=== PATIENT | male | born 1970 | race African-American/Black ===

== ENCOUNTER 2017-12-15 11:32 | Day surgery (SDC) | payer OTHER ==
[~2017-12-15 11:32] MED LIST: ADULT ROBITUSS118 ML PO; ALBU3IS INH; ALBU8HFA2 INH; ALBU90OI INH; ALBU90OI6 INH; ALBU90OI61 INH; ALBUIS INH; AMLO10 PO; ASMACORT; ASPI325 PO; AZIT250 PO; Arthritis Pain650 M1 PO; BUDE.25 NEB; BUDE.5 INH; BUDE.5 NEB; Bactrim Ds Tab1 EACH PO; Budesonide0.5 MG/2 M IH; CARV25 PO; CITA20 PO; CLON.1 PO; CLON.2TP TP; CLON.3 PO; DILT120 PO; DILT120ERA PO; DOCU100 PO; DULERA 200 MCG/13 GM INH; DULO30 PO; DULO60 PO; FAMO20 PO; FETZIMA40 MG PO; FLUSAL2505 IH; FLUSAL5005 IH; GABA600 PO; HYDACE5 PO; HYDCHL12.5 PO; HYDCHL25 PO; HYDRA25 PO; HYDRA50 PO; IPRAIS INH; LISHYD1012 PO; LISI20 PO; LISI5 PO; MELO7.5 PO; METPRE4DP PO; MONT10T PO; NAPR500 PO; Norco 10-325 T1 EACH PO; Norco 5-325 Ta1 EACH PO; OXYACE5T PO; OXYC10TA19 PO; OXYC1TAB11 PO; PRED10; PRED10 PO; PRED20 PO; Prednisone20 MG PO; QVAR7.3 G1 IH; SPIR25 PO; TERA5 PO; TIOT18 INH; TRAM50 PO
[2017-12-15 12:16] LABS: International Normalized Ratio 0.99; Prothrombin Time Results 10.3 Sec (9.7-11.5)
== END 2017-12-15 22:51 | disposition home or self-care (01) ==
LOC: RAD 11:32
PROVIDERS: Orthopaedic Surgery
PROC: 0SBB3ZX Excision of Left Hip Joint, Percutaneous Approach, Diagnostic (ICD-10-PCS; principal; 2017-12-15)
DX: T84.52XA Infection and inflammatory reaction due to internal left hip prosthesis, initial encounter (principal)
CPT/HCPCS: 20610; 36415; 77002; 85610; 85730

== ENCOUNTER 2020-11-25 04:29 | Emergency (ER) | payer OTHER ==
[~2020-11-25] VITALS: Ht 182.9 cm; Wt 113.4 kg
== END 2020-11-25 07:43 ==
LOC: ER 04:29
DX: I46.9 Cardiac arrest, cause unspecified (principal); I10 Essential (primary) hypertension; E11.9 Type 2 diabetes mellitus without complications; Z87.891 Personal history of nicotine dependence; Z79.899 Other long term (current) drug therapy
CPT/HCPCS: 31500; 36415; 80047; 85014; 92950; 96374-59; 96375-59; 99285-25; J3475